=== PATIENT | male | born 1960 | race Caucasian/White ===

== ENCOUNTER 2020-12-12 18:41 | Inpatient (IN) | payer OTHER, SELFPAY ==
[~2020-12-12] VITALS: Ht 175.3 cm; Wt 101.2 kg
[2020-12-12 19:05] VITALS: BP_SYST 134
[2020-12-12] MEDS ORDERED: NACL 0.9% 1,000 ML IV ONE (20:45)
[2020-12-12 21:21] LABS: BASOPHILS % (AUTO) 0.3 % (0.0-2.0); EOSINOPHILS # (AUTO) 0.2 K/uL (0.0-0.4); EOSINOPHILS % (AUTO) 1.3 % (0.0-4.0); HEMATOCRIT 40.6 % (36-54); HEMOGLOBIN 13.8 g/dL (14.0-18.0); LYMPHOCYTES # (AUTO) 2.3 K/uL (1.0-5.5); LYMPHOCYTES % (AUTO) 19.1 % (20.5-51.5); MEAN CORPUSCULAR HEMOGLOBIN 30 pg (27-31); MEAN CORPUSCULAR HGB CONC 34 % (32-36); MEAN CORPUSCULAR VOLUME 87 fL (79.0-98.0); MONOCYTES # (AUTO) 0.8 K/uL (0.0-1.0); MONOCYTES % (AUTO) 6.3 % (1.7-9.3); NEUTROPHILS # (AUTO) 8.9 K/uL (1.8-7.7); PLATELET COUNT (AUTO) 310 K/uL (130-430); RED BLOOD CELL COUNT(AUTO) 4.65 MIL/uL (4.2-6.2); RED CELL DISTRIBUTION WIDTH 15.5 % (9.0-15.0); WHITE BLOOD COUNT (AUTO) 12.2 K/uL (4.8-10.8)
[2020-12-12 21:32] LABS: CALCIUM 8.8 mg/dL (8.4-11.0); CREATININE 0.96 mg/dL (0.55-1.30); POTASSIUM 3.4 mmol/L (3.5-5.1)
[2020-12-12 21:34] LABS: ALBUMIN 3.6 g/dL (3.4-4.8); PHOSPHORUS 4.1 mg/dL (2.7-4.5); TOTAL BILIRUBIN 0.3 mg/dL (0.0-1.0)
[2020-12-12] MEDS ORDERED: POTASSIUM CHLORIDE 20 MEQ/PKT PACKET PO ONE (22:00)
[2020-12-12] MEDS ORDERED: IOHEXOL 350 mgI/mL, 150 ML INFUS..BTL IV ONE (23:15)
[2020-12-13 04:44] VITALS: BP_SYST 133
[2020-12-13 09:19] VITALS: BP_SYST 152
[2020-12-13 12:24] VITALS: BP_SYST 100
[2020-12-13] MEDS: LORazepam 2 MG/ML VIAL IVP PRN (12:30)
[2020-12-13 13:07] LABS: BASOPHILS % (AUTO) 0.4 % (0.0-2.0); EOSINOPHILS # (AUTO) 0.1 K/uL (0.0-0.4); EOSINOPHILS % (AUTO) 1.5 % (0.0-4.0); HEMATOCRIT 41.5 % (36-54); LYMPHOCYTES # (AUTO) 1.9 K/uL (1.0-5.5); LYMPHOCYTES % (AUTO) 21.5 % (20.5-51.5); MEAN CORPUSCULAR HEMOGLOBIN 30 pg (27-31); MEAN CORPUSCULAR HGB CONC 34 % (32-36); MEAN CORPUSCULAR VOLUME 88 fL (79.0-98.0); MONOCYTES # (AUTO) 0.4 K/uL (0.0-1.0); MONOCYTES % (AUTO) 4.5 % (1.7-9.3); NEUTROPHILS # (AUTO) 6.5 K/uL (1.8-7.7); NEUTROPHILS % (AUTO) 72.1 % (40.0-70.0); PLATELET COUNT (AUTO) 337 K/uL (130-430); RED BLOOD CELL COUNT(AUTO) 4.73 MIL/uL (4.2-6.2); RED CELL DISTRIBUTION WIDTH 15.8 % (9.0-15.0)
[2020-12-13 13:23] LABS: CALCIUM 8.8 mg/dL (8.4-11.0); CREATININE 0.74 mg/dL (0.55-1.30); POTASSIUM 3.7 mmol/L (3.5-5.1)
[2020-12-13 14:10] LABS: FREE T4 (FREE THYROXINE) 1.3 ng/dl (0.8-1.5); THYROID STIMULATING HORMONE 1.74 uIu/mL (0.36-3.74)
[2020-12-13 16:37] VITALS: BP_SYST 144
[2020-12-13] MEDS ORDERED: ACETAMINOPHEN 325 MG TABLET PO PRN (17:15)
[2020-12-13] MEDS: PIPERACILLIN/TAZO 3.375/DEX-IS 50 ML IV SCH ×2 (18:00→23:56)
[2020-12-13] MEDS: LR 1,000 ML IV SCH (19:26)
[2020-12-13 20:00] VITALS: BP_SYST 142
[2020-12-13] MEDS: ACYCLOVIR IV 500 MG in D5W 100 ML IV SCH (20:00)
[2020-12-13] MEDS ORDERED: ACYCLOVIR SODIUM 50 MG/ML VIAL IV ONE (22:04)
[2020-12-13] MEDS ORDERED: PIPERACILLIN/TAZOBACTAM 3.375 GM/VIAL (ZOSYN) IV ONE (22:04)
[2020-12-13 23:25] LABS: BILIRUBIN,URINE NEGATIVE (NEGATIVE); BLOOD, URINE NEGATIVE (NEGATIVE); CLARITY/URINE CLEAR (CLEAR); COLOR,URINE YELLOW (YELLOW); GLUCOSE,URINE NEGATIVE (NEGATIVE); KETONES,URINE NEGATIVE (NEGATIVE); LEUKOCYTE ESTERASE ,URINE NEGATIVE (NEGATIVE); NITRITE, URINE NEGATIVE (NEGATIVE); PROTEIN URINE NEGATIVE (NEGATIVE); UROBILINOGEN,URINE 0.2 (0.2-1.0)
[2020-12-14] VITALS: BP_SYST 141
[2020-12-14 00:33] LABS: BARBITURATE, URINE NEGATIVE (NEG <=200); BENZODIAZEPINE, URINE POSITIVE (NEG <=150); CANNABINOID, URINE NEGATIVE (NEG <=50); COCAINE, URINE NEGATIVE (NEG <=150); METHAMPHETAMINES SCREEN,URINE NEGATIVE (NEG <=500); OPIATE, URINE POSITIVE (NEG <=100); PHENCYCLIDINE SCREEN,URINE NEGATIVE (NEG <=25); UR TRICYCLIC ANTIDEPRESSANTS NEGATIVE (NEG <=300); URINE AMPHETAMINE NEGATIVE (NEG <=500); URINE METHADONE NEGATIVE (NEG <=200); URINE OXYCODONE SCREEN NEGATIVE (NEG <=100); URINE PROPOXYPHENE SCREEN NEGATIVE (NEG <=300)
[2020-12-14] MEDS: LR 1,000 ML IV SCH ×3 (04:00→23:37)
[2020-12-14] MEDS: ACYCLOVIR IV 500 MG in D5W 100 ML IV SCH ×3 (05:21→21:07)
[2020-12-14] MEDS: PIPERACILLIN/TAZO 3.375/DEX-IS 50 ML IV SCH ×4 (06:21→23:37)
[2020-12-14 06:50] LABS: BASOPHILS % (AUTO) 0.4 % (0.0-2.0); EOSINOPHILS # (AUTO) 0.2 K/uL (0.0-0.4); EOSINOPHILS % (AUTO) 2.9 % (0.0-4.0); HEMATOCRIT 38.8 % (36-54); LYMPHOCYTES # (AUTO) 1.8 K/uL (1.0-5.5); MEAN CORPUSCULAR HEMOGLOBIN 30 pg (27-31); MEAN CORPUSCULAR HGB CONC 33 % (32-36); MEAN CORPUSCULAR VOLUME 89 fL (79.0-98.0); MONOCYTES # (AUTO) 0.4 K/uL (0.0-1.0); MONOCYTES % (AUTO) 4.4 % (1.7-9.3); NEUTROPHILS # (AUTO) 6.1 K/uL (1.8-7.7); NEUTROPHILS % (AUTO) 71.3 % (40.0-70.0); PLATELET COUNT (AUTO) 293 K/uL (130-430); RED BLOOD CELL COUNT(AUTO) 4.39 MIL/uL (4.2-6.2); RED CELL DISTRIBUTION WIDTH 15.7 % (9.0-15.0); WHITE BLOOD COUNT (AUTO) 8.5 K/uL (4.8-10.8)
[2020-12-14 08:00] VITALS: BP_SYST 153
[2020-12-14 08:20] LABS: CALCIUM 8.3 mg/dL (8.4-11.0); CREATININE 0.84 mg/dL (0.55-1.30); FREE T4 (FREE THYROXINE) 1.3 ng/dl (0.8-1.5); POTASSIUM 3.9 mmol/L (3.5-5.1); THYROID STIMULATING HORMONE 1.74 uIu/mL (0.36-3.74)
[2020-12-14] MEDS: LORazepam 2 MG/ML VIAL IVP PRN (08:45)
[2020-12-14] MEDS ORDERED: HYDROcodone/ACETAMIN 5-325 MG TAB (NORCO/ VICODIN) PO PRN (10:30)
[2020-12-14] MEDS ORDERED: NALOXONE HCL 0.4 MG/ML AMP (NARCAN) IVP PRN (10:30)
[2020-12-14 12:00] VITALS: BP_SYST 116
[2020-12-14 16:00] VITALS: BP_SYST 147
[2020-12-14 20:00] VITALS: BP_SYST 132
[2020-12-15] VITALS: BP_SYST 124
[2020-12-15 03:06] LABS: FOLATE (FOLIC ACID) 11.2 ng/mL (>3.0)
[2020-12-15 04:00] VITALS: BP_SYST 120
[2020-12-15] MEDS: PIPERACILLIN/TAZO 3.375/DEX-IS 50 ML IV SCH (05:47)
[2020-12-15] MEDS: ACYCLOVIR IV 500 MG in D5W 100 ML IV SCH ×3 (05:47→20:59)
[2020-12-15 06:37] LABS: BASOPHILS % (AUTO) 0.5 % (0.0-2.0); EOSINOPHILS # (AUTO) 0.3 K/uL (0.0-0.4); EOSINOPHILS % (AUTO) 3.4 % (0.0-4.0); HEMATOCRIT 38.5 % (36-54); HEMOGLOBIN 12.9 g/dL (14.0-18.0); LYMPHOCYTES # (AUTO) 1.8 K/uL (1.0-5.5); LYMPHOCYTES % (AUTO) 18.2 % (20.5-51.5); MEAN CORPUSCULAR HEMOGLOBIN 30 pg (27-31); MEAN CORPUSCULAR HGB CONC 34 % (32-36); MEAN CORPUSCULAR VOLUME 89 fL (79.0-98.0); MONOCYTES # (AUTO) 0.5 K/uL (0.0-1.0); MONOCYTES % (AUTO) 5.2 % (1.7-9.3); NEUTROPHILS # (AUTO) 7.2 K/uL (1.8-7.7); NEUTROPHILS % (AUTO) 72.7 % (40.0-70.0); PLATELET COUNT (AUTO) 299 K/uL (130-430); RED BLOOD CELL COUNT(AUTO) 4.33 MIL/uL (4.2-6.2); RED CELL DISTRIBUTION WIDTH 15.6 % (9.0-15.0); WHITE BLOOD COUNT (AUTO) 9.9 K/uL (4.8-10.8)
[2020-12-15 07:05] LABS: ANION GAP 8 (5-15); CHLORIDE 105 mmol/L (98-107); CREATININE 0.99 mg/dL (0.55-1.30); GLUCOSE 105 mg/dL (70-99); SODIUM SERUM 139 mmol/L (136-145); UREA NITROGEN, BLOOD 10 mg/dL (8-21)
[2020-12-15 08:00] VITALS: BP_SYST 151
[2020-12-15 08:48] LABS: C-REACTIVE PROTEIN QUANT < 0.2 mg/dL (0-0.5); GFR AFRICAN AMERICAN 99 mL/min (>90)
[2020-12-15 09:00] LABS: ERYTHROCYTE SEDIMENTATION RATE 13 MM/HR (0-15)
[2020-12-15 12:00] VITALS: BP_SYST 145
[2020-12-15] MEDS: LR 1,000 ML IV SCH (12:14)
[2020-12-15] MEDS: LORazepam 2 MG/ML VIAL IVP PRN (13:00)
[2020-12-15 16:00] VITALS: BP_SYST 139
[2020-12-15 20:53] VITALS: BP_SYST 136
[2020-12-16 00:08] VITALS: BP_SYST 136
[2020-12-16] MEDS: LR 1,000 ML IV SCH ×2 (01:12→05:32)
[2020-12-16] MEDS: ACYCLOVIR IV 500 MG in D5W 100 ML IV SCH ×3 (05:58→21:12)
[2020-12-16 08:00] VITALS: BP_SYST 137
[2020-12-16] MEDS: CYANOCOBALAMIN 1000 mCg TABLET PO SCH (10:04)
[2020-12-16] MEDS: MULTIVITS,CA,MINERALS/IRON/FA 1 TABLET GT SCH (10:04)
[2020-12-16] MEDS: LORazepam 2 MG/ML VIAL IVP PRN (10:19)
[2020-12-16 11:29] VITALS: BP_SYST 147
[2020-12-16 16:41] VITALS: BP_SYST 153
[2020-12-16 21:00] VITALS: BP_SYST 143
[2020-12-17 00:18] VITALS: BP_SYST 150
[2020-12-17] MEDS: ACYCLOVIR IV 500 MG in D5W 100 ML IV SCH (05:22)
[2020-12-17 08:50] VITALS: BP_SYST 143
[2020-12-17] MEDS: LORazepam 2 MG/ML VIAL IVP PRN (10:32)
[2020-12-17 11:25] VITALS: BP_SYST 140
[2020-12-17] MEDS ORDERED: CYAN100010 PO (13:56)
[2020-12-17] MEDS ORDERED: MULT-1145 GT (13:56)
[2020-12-17 15:17] VITALS: BP_SYST 154
[2020-12-17 16:56] VITALS: BP_SYST 154
[2020-12-17] MEDS: MULTIVITS,CA,MINERALS/IRON/FA 1 TABLET GT SCH (17:20)
[2020-12-17] MEDS: CYANOCOBALAMIN 1000 mCg TABLET PO SCH (17:21)
[2020-12-17] MEDS ORDERED: ACYC400T19 PO (18:09)
== END 2020-12-17 18:00 | disposition home or self-care (01) | DRG 69 ==
LOC: SED 18:41 → STU 12-13 02:53
PROVIDERS: ADMIT Internal Medicine; ATTEND Internal Medicine
DX: G45.9 Transient cerebral ischemic attack, unspecified (principal); M06.9 Rheumatoid arthritis, unspecified; D72.829 Elevated white blood cell count, unspecified; G89.29 Other chronic pain; M54.9 Dorsalgia, unspecified; E78.5 Hyperlipidemia, unspecified; Z20.822 Contact with and (suspected) exposure to COVID-19; G43.909 Migraine, unspecified, not intractable, without status migrainosus; D64.9 Anemia, unspecified; E66.9 Obesity, unspecified; E87.6 Hypokalemia; Z88.5 Allergy status to narcotic agent; Z68.32 Body mass index [BMI] 32.0-32.9, adult
CPT/HCPCS: 36415; 70450-TC; 70496; 70498; 70551; 71045; 71260-TC; 76376; 80048; 80053; 80061; 80307; 81003; 82607; 82746; 83735; 83880; 84100; 84439; 84443; 84484; 85025; 85651-TC; 86140; 86592; 86694; 86695; 86696; 86710; 87040-TC; 87086; 93005; 93306; 95816; 96360; 99285; G0378; J0133; J0696; J2060; J2543; J7060; Q9967